=== PATIENT | male | born 1950 | race Caucasian/White ===

== ENCOUNTER 2025-01-02 13:33 | Outpatient (CLI) | payer OTHER, SELFPAY ==
--- NOTE | ~2025-01-02 | PE_ITS ---
EXAMINATION: PET_PETPSMAST_PT DATE: 01/02/2025 15:34 INDICATION: Prostate cancer TECHNIQUE: 5.081 mCi of Illucix Ga-[id number]) was administered i.v. Low dose computed mellissa graphy (CT) images were acquired from the base of the brain to the base of the brain to the proximal thighs for attenuation correction and anatomic localization. Positron emission tomography (PET) image s were acquired in the same distribution beginning 83 minutes after injection. Images including fused PET/CT images were reconstructed in axial, coronal, and sagittal planes. Automated exposure control technique was employed. The dose-length product was 955.18mGy-cm. COMPARISON: None FINDINGS: Head/neck: Typical pattern of symmetric physiologic increased activity in the lacrimal, parotid and submandibula r glands as well as along the mucosa of the nasal and oral cavities, pharynx and hypopharynx. No path ologically enlarged cervical lymphadenopathy or suspicious foci of increased uptake in the visualized head or neck. Chest: There are extensive peripheral and lower lung predominant groundglass opacities and irregular septal line thickening which could be due to pneumonia or pulmonary edema in the acute setting or nonspecifi c interstitial pneumonia (NSIP) pattern chronic interstitial lung disease. No pleural effusion. Cardi omegaly. Atherosclerotic coronary artery calcifications and change of prior median sternotomy and cor onary artery bypass grafting. No pericardial effusion. Thoracic aorta is normal in caliber. No pathol ogically enlarged or PSMA avid thoracic lymphadenopathy. Small sliding-type hiatal hernia. Abdomen/pelvis/proximal thighs: Physiologic renal accumulation and excretion of activity in the kidneys, bladder and along portions o f ureters. Prostatomegaly measuring 4.5 x 3.9 cm. There are relatively symmetric foci of increased ac tivity at the left and right posterior aspects of the prostate with maximal SUV of 11.7 on the left a nd 7.3 on the right consistent with primary prostate cancer. Normal degree and slightly heterogenous pattern of increased uptake throughout the liver and spleen without radiologic correlate or dominant PSMA avid lesion. Cholecystectomy clips the gallbladder fossa. The pancreas and bilateral adrenal gla nds are normal. Moderate uptake scattered throughout the bowels with typical duodenal and proximal je junal predominance and without radiologic correlate, also likely physiologic. No other abnormal foci of increased uptake or pathologically enlarged lymphadenopathy in the abdomen, pelvis or proximal thi ghs. Musculoskeletal: Mild cervical, thoracic and lumbar spondylosis. 5 mm anterolisthesis L4 on L5. No suspicious lytic, b lastic or abnormally PSMA avid bone lesions to suggest metastatic disease. IMPRESSION: 1. 2 small regions of moderate increased PSMA uptake posterior aspect of the enlarged prostate on bot h the left and right consistent with primary prostate cancer. No evident metastatic disease. Reviewed, dictated and finalized at location A. IMPRESSION: 1. 2 small regions of moderate increased PSMA uptake posterior aspect of the en larged prostate on both the left and right consistent with primary prostate can cer. No evident metastatic disease.
--- OUTSIDE RECORDS SUMMARY | 2025-01-02 15:12 | XMS_ITS | Clinical Summary ---
Author Organization [facility] Address [address] [place] [address] Care Team Providers Care Fishing Game Warden Name Role Phone Geovanny Walter MD Primary Care Provider Allergies No known active allergies Medications fluticasone propionate (FLONASE) 50 mcg/actuation nasal sprayIndications:A llergic Rhinitis Administer 1 spray into affected nostril(s) every morning 6 Active latanoprost (XALATAN) 0.005 % ophthalmic solutionIndication s:open angle glaucoma Administer 1 drop into both eyes nightly 3 Active nitroglycerin (NITROSTAT) 0.4 mg SL tabletIndications: acute episode of anginal pain,acute myocardial infarction Place 1 tablet (0.4 mg total) under the tongue every 5 (five) minutes as needed for chest pain Active atorvastatin (LIPITOR) 40 mg tabletIndications: hyperlipidemia Take 1 tablet (40 mg total) by mouth nightly Crush pills until 09/07 when able to take pills whole 4 Active ondansetron ODT (ZOFRAN-ODT) 4 mg disintegrating tabletIndications: Prevention of Post-Operative Nausea and Vomiting Take 1 tablet (4 mg total) by mouth every 8 (eight) hours as needed for nausea or vomiting 20 tablet 2 4 Active lisinopriL (PRINIVIL,ZESTRIL) 2.5 mg tabletIndications: hypertension Take 1 tablet (2.5 mg total) by mouth daily Crush pills until 09/07 when able to take pills whole 4 Active metoprolol XL (TOPROL-XL) 25 mg extended release tabletIndications: coronary artery disease Take 1 tablet (25 mg total) by mouth nightly RESTART on 09/07 when able to take pills whole 4 Active omeprazole (PriLOSEC) 40 mg capsuleIndications :Stress Ulcer Prophylaxis Take 1 capsule (40 mg total) by mouth daily Open capsule and take in applesauce until 09/07 when able to take pills whole 4 Active acetaminophen (TYLENOL) solution 160 mg/5 mL Take 31 mL (1,000 mg total) by mouth every 6 (six) hours as needed for pain Use first for management of pain 120 mL 4 Active aspirin 81 mg enteric coated tabletIndications: Myocardial Reinfarction Prevention Take 1 tablet (81 mg total) by mouth every morning RESTART on 09/07 when able to take pills whole 4 Active glipiZIDE (GLUCOTROL) 2.5 mg tablet Take 1 tablet (2.5 mg total) by mouth 2 (two) times a day before breakfast and lunch Crush pills until 09/07 when able to take pills whole 4 Active omeprazole (PriLOSEC) 40 mg capsule Take 1 capsule (40 mg total) by mouth daily 30 capsule 3 5 026 Active Active Problems Problem Noted Date Diagnosed Date Hiatal hernia with gastroesophageal reflux 08/30 Hiatal hernia with GERD 05/03/2024 Peripheral artery disease 12/14/2023 Type 2 diabetes mellitus wit h diabetic chronic kidney disease, unspecified CKD stage, unspecified whether long filler cigar roller machine insulin use 12/14/2023 Stage 3 chronic kidney disea se, unspecified whether stage 3a or 3b CKD 12/14/2023 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 Castano at the [facility]./EGD Prep Instructions were sent through [facility] today, per patient.) 12/29/2024 Orders Only [address] [place] [phone] Nancy Castano MD Grissom's esophagus with high grade dysplasia (Primary Dx) 11/23/2024 12:30 PM NANOTECHNICIAN - 11/23/2024 1:00 PM NANOTECHNICIAN Surgery [address] [place] [address] Nancy Castano MD ESOPHAGOSCOPY WITH ABLATION 11/23/2024 12:21 PM NANOTECHNICIAN Anesthesia Event [address] [place] [address] Harjinder Mcqueen MD 11/23/2024 11:23 AM NANOTECHNICIAN - 11/23/2024 2:00 PM NANOTECHNICIAN Hospital Encounter [address] [address] Nancy Castano MD Discharge Disposition: Discharge to home or self care 11/16/2024 Telephone [facility] Specialty Services [address] [place] [phone] Jamia Kumar RN GI Preprocedure 11/08/2024 Telephone [facility] - [facility] Minimally Invasive Surgery [address] [place] [address] [facility] 12th Floor, [place] [address] Natty White MD Scheduling Appointments 11/07/2024 Telephone [facility] ([facility]) [facility] Minimally Invasive Surgery [address] [place] [address] [facility] 12th Floor, [place] [address] Leigh Gallardo NP Scheduling Appointments 11/07/2024 Telephone [facility] ([facility]) - [facility] Minimally Invasive Surgery [address] [place] [address] 12th Floor, [place] [address] Natty White MD Scheduling Appointments 11/03/2024 Telephone [facility] ([facility]) - [facility] Minimally Invasive Surgery [address] [facility] 12th Floor, [place] [phone] Leigh Gallardo NP Scheduling Appointments 11/03/2024 Telephone [facility]) [facility] Minimally Invasive Surgery [address] [facility] 12th [address], [place] [phone] Naty Rea MA from Last 3 Months Surgical History Surgery Date Site/Laterality Comments CORONARY ARTERY BYPASS GRAFT 10/18/2019 - 10/17/2020 CHOLECYSTECTOMY UPPER GASTROINTESTINAL ENDOSCOPY COLONOSCOPY Medical History Medical History Date Comments GERD (gastroesophageal reflux disease) Grissom esophagus Hypertension Coronary artery disease Type 2 diabetes mellitus (HCC) History of transfusion Cataract Arthritis H/O three vessel coronary artery bypass Sleep apnea Family History Medical History Relation Name Comments Prostate cancer Father Anesthesia problems Neg Hx Relation Name Status Comments Father Social History Tobacco Use Types Packs/Day Years Used Date Smoking Tobacco: Never Passive Smoke Exposure: Never Smokeless Tobacco: Never Tobacco Cessation:Counseling Given: Not Answered AUDIT-C Answer Date Recorded Q1: How often do you have a drink containing alc ohol? Monthly or less 11/23/2024 Q2: How many drinks containi ng alcohol do you have on a typical day when you are drinking? 1 or 2 11/23/2024 Q3: How often do you have si x or more drinks on one occasion? Never 11/23/2024 Personal Safety Answer Date Recorded Have you ever been in or are you currently in a harmful physical or emotional relationship or is someone making you feel afraid or unsafe? Denies 11/23/2024 Sex and Gender Information Value Date Recorded Sex Assigned at Not on file Legal Sex Male 2:40 AM NANOTECHNICIAN Gender Identity Not on file Sexual Orientation Not on file Obstetrics History Last Filed Vital Signs Vital Sign Reading Time Taken Comments Blood Pressure 95/58 11/23/2024 1:35 PM NANOTECHNICIAN Pulse 69 11/23/2024 1:35 PM NANOTECHNICIAN Temperature 37 C (98.6 F) 11/23/2024 1:05 PM NANOTECHNICIAN Respiratory Rate 16 11/23/2024 1:35 PM NANOTECHNICIAN Oxygen Saturation 98% 11/23/2024 1:35 PM NANOTECHNICIAN Inhaled Oxygen Concentration - - Weight 77.1 kg (170 lb) 11/23/2024 11:42 AM NANOTECHNICIAN Height 177.8 cm (5' 10 ) 11/23/2024 11:42 AM NANOTECHNICIAN Body Mass Index 24.39 11/23/2024 11:42 AM NANOTECHNICIAN Plan of Treatment Upcoming Encounters Date Type Department Care Team (Latest Contact Info) Description 02/20/2025 11:30 AM CDT Hospital Encounter [facility] Digestive Disease [place] [address] [facility] [address] [place] [address] Nancy Castano MD [address] [place] [address] 02/20/2025 11:30 AM CDT - 02/20/2025 12:00 PM CDT Surgery [facility] Digestive Disease [address] [address] Nancy Castano MD [address] [place] [address] ESOPHAGOGASTRODUODENOSCOPY Scheduled Procedures Name Priority Associated Diagnoses Date/Ti me ESOPHAGOGASTRODUODENOSCOPY Grissom's esophagus with high grade dysplasia 02/20/2025 11:30 AM CDT Health Maintenance Due Date Last Done Comments Albumin Creatinine Ratio, Urine 1950 Colon Cancer Screening-Colonoscopy 1950 Depression Screening 1950 Hepatitis C Screening 1950 Dilated Eye Exam 1950 Foot Exam 1950 DTaP/Tdap/Td Vaccine (1 - Tdap) 1963 Hepatitis B Screening 1970 Prostate Cancer Screening-PSA 05/24/2015 05/24/2013 Well Visit 65+ 2017 Pneumococcal vaccine 65+ (2 of 2 - PCV) 08/22/2020 08/22/2019 Covid-19 Vaccine (5 - 2023-2 5 season) 2024 02/06/2022, 08/12/2021, 12/10/2020, Additional history exists Influenza Vaccine (#1) 2024 9, 07/21/2018, 07/30/2017, Additional history exists Hemoglobin A1C 02/14/2025 08/17/2024, 0804/2013, 11/08/2012 Lipid Panel 08/30/2025 08/30/2024, 05/18, 09/26/2022, Additional history exists eGFR 08/31/2025 08/31/2024, 08/18, 08/17/2024 Fall Risk Assessment 11/23/2025 11/23/2024 Zoster Vaccine Completed 11/18/2018, 08/18/2018 Procedures Procedure Name Priority Date/Time Associated Diagnosis Comments ESOPHAGOSCOPY WITH ABLATION 11/23/2024 12:21 PM NANOTECHNICIAN Grissom's esophagus with high grade dysplasia Special Needs EGD WITH CRYOTHERAPY EGD 11/23/2024 11:58 AM NANOTECHNICIAN POCT GLUCOSE DEVICE Routine 11/23/2024 11:54 AM NANOTECHNICIAN EGFR Routine 08/31/2024 9:23 PM NANOTECHNICIAN LIPID PANEL Routine 08/30/2024 9:53 PM NANOTECHNICIAN POCT HEMOGLOBIN A1C Routine 08/17/2024 2 :18 PM CDT PSA DIAGNOSTIC Routine 05/24/2013 10:18 AM CDT from Last 3 Months or Most Recently Relevant to Health Maintenance Results * EGD (11/23/2024 11:58 AM NANOTECHNICIAN) Anatomical Region Laterality Modality Other Narrative Procedure Note Early, Nancy Winslow MD - 11/23/2024 11:58 AM CST GI ENDOSCOPY [facility] Patient Name: Sy Salguero Procedure Date: 11/23/2024 11:58 AM Date of : 1950 Admit Type: Outpatient Age: 73 Gender: Male Attending MD: Nancy Castano M.D. Room: [facility] ENDOSCOPY ROOM 9 Note Status: Finalized Procedure: Upper GI endoscopy Indications: For endoscopic therapy of Grissom's esophagus with high grade dysplasia s/p previous RFA andcryotherapy. Original segment [id number]. Last EGD 04/2024 with cryotherapy. Referring MD: Geovanny Walter M.D. Providers: Nancy Castano M.D., Luly Hudson M.D. Medicines: Monitored Anesthesia Care Complications: No immediate complications. Estimated Blood Loss: Estimated blood loss was minimal. Procedure: Pre-Anesthesia Assessment: - The risks and benefits of the procedure and the sedation options and risks were discussed with the patient. All questions were answered and informed consent was obtained. The benefits, risks, and alternatives to theprocedure and sedation were discussed and informed consentwas obtained. The scope was passed under direct vision. The GIF [id number] endoscope was introduced through the mouth, and advanced to the antrum ofthe stomach. The upper GI endoscopy was accomplished without difficulty. The patient tolerated the procedure well. Findings: Esophagogastric landmarks were identified: the upper extent of the gastric folds was found at 37 cm from the incisors. A 4 cm hiatal hernia was present. The esophagus and gastroesophageal junction were examined with white light and narrow band imaging (NBI) from a forward view andretroflexed position. There were esophageal mucosal changes suggestive ofBarrett's esophagus. These changes involved the mucosa at the upper extent ofthe gastric folds (37 cm from the incisors) extending to the Z-line (36cm from the incisors). A salmon colored island was present at 35 cm. The maximum longitudinal extent of these esophageal mucosal changes was 1cm in length. The decision was made to ablate the abnormal mucosa in the esophagus with spray cryotherapy. Endoscopic visualization identified the ablation site. Ventilation tubing had been attached to the endoscope. The ablation catheter was inserted via the workingchannel. A clear cap was fitted to the distal tip of the endoscope. A total oftwo sites were ablated. Liquid nitrogen cryogen was applied for 20seconds after the first appearance of a frosting effect. The ablated area was allowed to thaw for 60 seconds. Ablation was repeated in a likewise fashion at each site for a total of two cycles each to 2 sites. No complications was observed at the conclusion of therapy. Theventilation tubing was removed. The anatomical areas where the abnormal mucosahad been ablated were examined. Areas of abnormal mucosa appearedcompletely ablated. Impression: - Esophageal mucosal changes suggestive ofBarrett's esophagus. Ablated with spray cryotherapy usingcarbon dioxide. - 4 cm hiatal hernia. Recommendation: - Observe patient in GI recovery unit forobservation. - Full liquid diet (clear soups, cream soups, milkshakes, ice cream, jello) for 1 day. - Mechanical soft diet (scrambled eggs, mashed potatoes, yogurt, ice cream, noodles, etc.) fornext day. Advance diet to regular if no difficulty swallowing after day 2. Go back to the full liquid diet if you have any difficulty swallowing and callus at [phone]. - Tylenol tablets, gel caps, or elixir(acetaminophen generic) 1000mg up to every 6 hours as needed for severe chest pain. - Be sure to take your proton pump inhibitor (Prilosec, Prevacid, Nexium, Protonix, etc) twice a day 30 minutes before meals. - Carafate liquid 1 gram 1-2 hours after meals andat night to coat the esophagus and assist in healingfor the next 2 weeks. - Repeat the upper endoscopy in 3 months for retreatment or if all Grissom's mucosa iseliminated for surveillance Attending Participation: I was present and participated during the entire procedure, including non-mora portions. Electronically signed by Nancy Castano MD Nancy Castano M.D. 11/23/2024 1:08:12 PM . Number of Addenda: 0 Note Initiated On: 11/23/2024 11:58 AM us Nancy Castano MD ENDOSCOPY PROCEDURES Final Res ult * POCT glucose (11/23/2024 11:54 AM NANOTECHNICIAN) Glucose, POC 119 70 - 199 mg/dL Blood 11/23/2024 11:5 4 AM NANOTECHNICIAN 11/23/2024 11:54 AM NANOTECHNICIAN Nancy Castano MD LAB POCT ORDERABLES - DEVICE F inal Result [facility] Department [place] [address] * (ABNORMAL) eGFR (08/31/2024 9:23 PM NANOTECHNICIAN) eGFR 46(L) >=60 mL/min/1. 73 m2 Comment: Interpretive Data Reference Interval Normal >/= 90 mL/min/1.73m2 Mildly decreased* 60 - 89 mL/min/1.73m2 Mildly to moderately decreased 45 - 59 mL/min/1.73m2 Moderately to severely decreased 30 - 44 mL/min/1.73m2 Severely decreased 15 - 29 mL/min/1.73m2 Kidney Failure < 15 mL/min/1.73m2 *Relative to young adult level Estimated glomerular filtration rate is determined by the 2020 CKD-EPI equation recommended by the National Kidney Foundation (A Unifying Approach to GFR Estimation: Recommendations of the NKF-ASK Task Force on Reassessing the Inclusion of Race in Diagnosing Kidney Disease, JASN 2020). The CKD-EPI equation should not be used for patients with unstable renal function and has not been validated in children and those over 70. Current interpretive data was last reviewed 2021. Blood 08/31/2024 9:23 PM NANOTECHNICIAN 08/31/2024 9:55 PM NANOTECHNICIAN us Jessenia Hewitt NP LAB BLOOD ORDERABLES Fin al Result [facility] Department [place] [address] * Lipid panel (08/30/2024 9:53 PM NANOTECHNICIAN) Cholesterol 87 30 - 199 mg/dL Comment: Interpretive Data Ages < or = 19 years Acceptable: <170 mg/dL Borderline high: 170-199 mg/dL High: >or= 200 mg/dL Ages > or = 20 years Desirable: <200 mg/dL Borderline high: 200-239 mg/dL High: >or= 240 mg/dL Literature References: 1. Expert Panel on Integrated Guidelines for Cardiovascular Health and Risk Reduction in Children and Adolescents. Pediatrics 2011;128:S213 2. NCEP Expert Panel. Circulation 2004;110:227 Current Interpretive Data was last revised on 2018. Triglycerides 39 <=149 mg/dL [facility] Comment: Interpretive Data Ages < or = 9 years Acceptable: <75 mg/dL Borderline high: 75-99 mg/dL High: >or= 100 mg/dL Ages 10 to 20 years Acceptable: <90 mg/dL Borderline high: 90-129 mg/dL High: >or= 130 mg/dL Ages > or = 20 years Desirable: <150 mg/dL Borderline high: 150-199 mg/dL High: 200-499 mg/dL Very high: >or= 499 mg/dL Literature References: 1. Expert Panel on Integrated Guidelines for Cardiovascular Health and Risk Reduction in Children and Adolescents. Pediatrics 2011;128:S213 2. NCEP Expert Panel. Circulation 2004;110:227 Current Interpretive Data was last revised on 2018. HDL 44 >=40 mg/dL [facility] Comment: Interpretive Data Ages < or = 19 years Acceptable: >45 mg/dL Borderline low: 40-45 mg/dL Low: <40 mg/dL Ages > or = 20 years Desirable: >or= 60 mg/dL Low: <40 mg/dL Literature References: 1. Expert Panel on Integrated Guidelines for Cardiovascular Health and Risk Reduction in Children and Adolescents. Pediatrics 2011;128:S213 2. NCEP Expert Panel. Circulation 2004;110:227 Current Interpretive Data was last revised on 2018. LDL, calculated 32 <=129 mg/dL [facility] Comment: Interpretive Data Ages < or = 19 years Acceptable: <110 mg/dL Borderline high: 110-129 mg/dL High: >or= 130 mg/dL Ages > or = 20 years Optimal: <100 mg/dL Near optimal: 100-129 mg/dL Borderline high: 130-159 mg/dL High: >160 mg/dL Calculated using the Nicko LDL-C estimating equation. This equation was implemented on 2024. Prior to this date LDL-C was estimated using the Friedewald equation. Literature References: 1. Expert Panel on Integrated Guidelines for Cardiovascular Health and Risk Reduction in Children and Adolescents. Pediatrics 2011;128:S213 2. NCEP Expert Panel. Circulation 2004;110:227 3. Nicko Stevenson et al. MICHELLE Cardiol. 2020 February 15;5(5):540-548. doi: 10.1001/jamacardio.2020.0013 Current Interpretive Data was last revised on 2024. Non-HDL Cholesterol 43 mg/dL [facility] Comment: Interpretive Data Ages < or = 19 years Acceptable: <120 mg/dL Borderline high: 120-144 mg/dL High: >145 mg/dL Ages > or = 20 years When triglycerides are >200 mg/dL, Non-HDL cholesterol is a secondary target of therapy with treatment goals that are 30 mg/dL greater than the LDL cholesterol target. Literature References: 1. Expert Panel on Integrated Guidelines for Cardiovascular Health and Risk Reduction in Children and Adolescents. Pediatrics 2011;128:S213 2. NCEP Expert Panel. Circulation 2004;110:227 Current Interpretive Data was last revised on 2018. Chol/HDL ratio 2 [facility] Blood 08/30/2024 9:53 PM NANOTECHNICIAN 08/30/2024 11:38 PM NANOTECHNICIAN Natty White MD LAB BLOOD ORDERABLES Final R esult Performing Organization Address [facility] Co de Phone Number [facility] [place] [address] * (ABNORMAL) POCT hemoglobin A1c (08/17/2024 2:18 PM CDT) Pathologist [facility] Hgb A1C, POC 7.6(H) 4.0 - 5.6 % Est Average Gluc POC 171 mg/dL [facility] Comment: The ADA recommends reporting an estimated Average Glucose (eAG) with all Hemoglobin A1c results using the equation derived from a study of 507 normal and diabetic adults. Minority populations were underrepresented and children were not included. (Diabetes Care 31:9189-3482, 2008). The eAG is not equivalent to a fasting glucose. Blood 08/17/2024 2:18 PM CDT 08/17/2024 2:18 PM CDT Natty White MD POINT OF CARE TEST ORDERABLE S Final Result Performing Organization Address [facility] de Phone Number [facility] [place] [address] * PSA diagnostic (05/24/2013 10:18 AM CDT) [facility] PSA,TOTAL DIAGNOSTIC 3.8 0.0 - 5.4 ng/mL 05/24/2013 1:08 PM CDT [facility] HISTORICAL RESULTS Comment: Method: ECLIA Values obtained by different assay methods cannot be used interchangeably. Use sequential testing to confirm baseline if assay method changed during patient monitoring. 05/24/2013 10:1 8 AM CDT 05/24/2013 12:27 PM CDT Narrative [facility] HISTORICAL RESULTS - 05/24/2013 1:08 PM CDT FASTING 12 HRS [place] Musa MD LAB BLOOD ORDERABLES Final Resu lt Performing Organization Address [facility] Co de Phone Number [facility] HISTORICAL RESULTS from Last 3 Months or Most Recently Relevant to Health Maintenance Insurance [facility] Advance Directives For more information, please contact: [phone] * Full Code (Latest Code Status on File) Date Activated Date Inactivated Comments 11/23/2024 11:34 AM 11/23/2024 8:15 PM * Full Code Date Activated Date Inactivated Comments 08/30/2024 6:59 PM 09/01/2024 3:24 PM * Full Code Date Activated Date Inactivated Comments 05/01/2024 1:48 PM 05/01/2024 8:16 PM * Full Code Date Activated Date Inactivated Comments 12/23/2023 12:08 PM 12/23/2023 7:55 PM * Full Code Date Activated Date Inactivated Comments 09/20/2023 10:13 AM 09/20/2023 4:09 PM Care Teams Fishing Game Warden Relationship Specialty Start Date End Date Geovanny Walter MD PCP - General Family Medicine 02/09/23
--- OUTSIDE RECORDS SUMMARY | 2025-01-02 15:12 | XMS_ITS | Encounter Summary ---
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 Gender Identity Not on file Sexual Orientation Not on file documented as of this encounter Plan of Treatment Upcoming Encounters Date Type Department Care Team (Latest Contact Info) Description 02/20/2025 11:30 AM CDT Hospital Encounter [facility] Digestive Disease [place] [id number] [address] Nancy Castano MD [address] [facility] [place] [address] 02/20/2025 11:30 AM CDT - 02/20/2025 12:00 PM CDT Surgery [facility] Digestive Disease [place] [id number] [address] [address] Nancy Castano MD [address] [place] [address] ESOPHAGOGASTRODUODENOSCOPY Scheduled Procedures Name Priority Associated Diagnoses Date/Ti me ESOPHAGOGASTRODUODENOSCOPY Grissom's esophagus with high grade dysplasia 02/20/2025 11:30 AM CDT documented as of this encounter Procedures Procedure Name Priority Date/Time Associated Diagnosis Comments SCAN - LABS 02/15/2017 12:00 AM CDT documented in this encounter Results * SCAN - LABS (02/15/2017 12:00 AM CDT) Narrative 02/15/2017 12:00 AM CDT Ordered by an unspecified provider. us Historical Provider MD Final Res ult documented in this encounter Visit Diagnoses Not on filedocumented in this encounter Care Teams Link Trainer Teacher Relationship Specialty Start Date End Date Geovanny Walter MD PCP - General Family Medicine 02/09/23 documented as of this encounter
--- OUTSIDE RECORDS SUMMARY | 2025-01-02 15:12 | XMS_ITS | Encounter Summary ---
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 Digestive Disease [place] [phone] [address] Nancy Castano MD [address] [place] [address] 02/20/2025 11:30 AM CDT - 02/20/2025 12:00 PM CDT Surgery [facility] Digestive Disease [place] [phone] [address] Nancy Castano MD [address] [place] [address] ESOPHAGOGASTRODUODENOSCOPY Scheduled Procedures Name Priority Associated Diagnoses Date/Ti me ESOPHAGOGASTRODUODENOSCOPY Grissom's esophagus with high grade dysplasia 02/20/2025 11:30 AM CDT documented as of this encounter Procedures Procedure Name Priority Date/Time Associated Diagnosis Comments SCAN - LABS 02/09/2017 12:00 AM CDT documented in this encounter Results * SCAN - LABS (02/09/2017 12:00 AM CDT) Narrative 02/09/2017 12:00 AM CDT Ordered by an unspecified provider. us Historical Provider MD Final Res ult documented in this encounter Visit Diagnoses Not on filedocumented in this encounter Care Teams Utility Porter Relationship Specialty Start Date End Date Geovanny Walter MD PCP - General Family Medicine 02/09/23 documented as of this encounter
--- OUTSIDE RECORDS SUMMARY | 2025-01-02 15:13 | XMS_ITS | Encounter Summary ---
Author Organization [facility] Address [address] [place] [address] Care Team Providers Care Laboratory Equipment Cleaner Name Role Phone Geovanny Walter MD Primary Care Provider Encounter Details Date Type Department Care Team ([facility] Contact Info) Description 06/06/2020 Abstract [facility] at [address] [id number] Casi Sotelo MA Social History Tobacco Use Types Packs/Day Years Used Date Smoking Tobacco: Former Smokeless Tobacco: Never Comments:smoked pipe in genaro e[place] Alcohol Use Standard Drinks/Week Comments Yes 0 (1 standard drink = 0.6 oz pur e alcohol) socially AUDIT-C Answer Date Recorded Q1: How often do you have a drink containing alc ohol? 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 [address] [address] documented as of this encounter Procedures Procedure Name Priority Date/Time Associated Diagnosis Comments HEMOGLOBIN, GLYCOSYLATED Routine 06/03/2023 COMPREHENSIVE METABOLIC PANEL Routine 06/03/2023 LIPID PANEL Routine 06/03/2023 PROSTATE SPECIFIC ANTIGEN,TOTAL Routine 01/27/2022 COMPREHENSIVE METABOLIC PANEL Routine 01/27/2022 LIPID PANEL Routine 01/27/2022 HEMOGLOBIN, GLYCOSYLATED Routine 01/27/2022 CBC (OUTSIDE LAB) Routine 08/05/2021 PROSTATE SPECIFIC ANTIGEN,TOTAL Routine 08/05/2021 COMPREHENSIVE METABOLIC PANEL Routine 08/05/2021 LIPID PANEL Routine 08/05/2021 HEMOGLOBIN, GLYCOSYLATED Routine 08/05/2021 CBC (OUTSIDE LAB) Routine 06/04/2020 COMPREHENSIVE METABOLIC PANEL Routine 06/04/2020 LIPID PANEL Routine 06/04/2020 HEMOGLOBIN, GLYCOSYLATED Routine 06/04/2020 URIC ACID BLOOD Routine 06/04/2020 documented in this encounter Results * (ABNORMAL) COMPREHENSIVE METABOLIC PANEL (06/03/2023) SODIUM S/P/B 140 GLUCOSE 119 mg/dL AST 24 BUN 22 CREATININE S/P/B 1.66(A) 0.7 - 1.3 CALCIUM S/P/B 9.2 POTASSIUM S/P/B 4.0 CHLORIDE S/P/B 102 ALT 13 GFR ESTIMATE 44 us Default History Genericprovider LABORATORY Edited Result - Final * LIPID PANEL (06/03/2023) Pathologist [facility] CHOLESTEROL 100 TRIGLYCERIDES 73 HDL 46 LDL (CALCULATED) 39 us Default History Genericprovider LABORATORY Edited Result - Final * HEMOGLOBIN, GLYCOSYLATED (06/03/2023) Pathologist [facility] HGB A1C 6.8 % Default History Genericprovider LABORATORY Edited Result - Final * PROSTATE SPECIFIC ANTIGEN,TOTAL (01/27/2022) Pathologist [facility] PSA 8.2 01/27/2022 Doc [facility] Abstract LABORATORY Edited Resul t - Final * HEMOGLOBIN, GLYCOSYLATED (01/27/2022) Pathologist [facility] HGB A1C 6.9 % 01/27/2022 us Doc [facility] Abstract LABORATORY Final Result * LIPID PANEL (01/27/2022) Pathologist [facility] CHOLESTEROL 111 HDL 55 TRIGLYCERIDES 64 LDL (CALCULATED) 42 01/27/2022 us Doc [facility] Abstract LABORATORY Final Result * (ABNORMAL) COMPREHENSIVE METABOLIC PANEL (01/27/2022) Pathologist [facility] SODIUM S/P/B 138 POTASSIUM S/P/B 4.5 CO2 21 CHLORIDE S/P/B 104 GLUCOSE 129 mg/dL CALCIUM S/P/B 9.0 BUN 34 CREATININE S/P/B 1.62(A) 0.7 - 1.3 EGFR NON-AFR. AMER. 46 <=90 ALKALINE PHOSPHATASE S/P/B 76 ALT 15 AST 20 BILIRUBIN TOTAL S/P/B 0.6 ALBUMIN S/P/B 4.0 3.5 - 5.0 TOTAL PROTEIN S/P/B 7.1 GLOBULIN 3.1 01/27/2022 us Doc [facility] Abstract LABORATORY Final Result * PROSTATE SPECIFIC ANTIGEN,TOTAL (08/05/2021) Pathologist [facility] PSA 7.4 08/05/2021 us Doc [facility] Abstract LABORATORY Final Result * HEMOGLOBIN, GLYCOSYLATED (08/05/2021) Pathologist [facility] HGB A1C 6.9 % 08/05/2021 us Doc [facility] Abstract LABORATORY Final Result * LIPID PANEL (08/05/2021) [facility] CHOLESTEROL 108 HDL 56 TRIGLYCERIDES 67 LDL (CALCULATED) 38 08/05/2021 us Doc [facility] Abstract LABORATORY Final Result * (ABNORMAL) COMPREHENSIVE METABOLIC PANEL (08/05/2021) Pathologist [facility] SODIUM S/P/B 140 POTASSIUM S/P/B 5.1 CO2 22 CHLORIDE S/P/B 103 GLUCOSE 116 mg/dL CALCIUM S/P/B 9.4 BUN 30 CREATININE S/P/B 1.54(A) 0.7 - 1.3 EGFR AFR. AMER. 53 <=90 EGFR NON-AFR. AMER. 46 <=90 ALKALINE PHOSPHATASE S/P/B 88 ALT 21 AST 28 BILIRUBIN TOTAL S/P/B 0.7 ALBUMIN S/P/B 4.1 3.5 - 5.0 TOTAL PROTEIN S/P/B 7.2 GLOBULIN 3.1 08/05/2021 us Doc [facility] Abstract LABORATORY Final Result * CBC (OUTSIDE LAB) (08/05/2021) WBC 8.5 HGB 14.0 HCT 43.3 PLT 163 08/05/2021 us Doc [facility] Abstract LAB-OUTSIDE/ABSTRACTED Final Result * URIC ACID BLOOD (06/04/2020) Pathologist [facility] URIC ACID 5.2 06/04/2020 us Doc [facility] Abstract LABORATORY Final Result * HEMOGLOBIN, GLYCOSYLATED (06/04/2020) Pathologist [facility] HGB A1C 7.0 % 06/04/2020 us Doc [facility] Abstract LABORATORY Final Result * LIPID PANEL (06/04/2020) Pathologist [facility] CHOLESTEROL 102 HDL 48 TRIGLYCERIDES 72 LDL (CALCULATED) 40 06/04/2020 us Doc [facility] Abstract LABORATORY Final Result * (ABNORMAL) COMPREHENSIVE METABOLIC PANEL (06/04/2020) Pathologist [facility] SODIUM S/P/B 140 POTASSIUM S/P/B 4.9 CO2 24 CHLORIDE S/P/B 103 GLUCOSE 138 mg/dL CALCIUM S/P/B 9.1 BUN 31 CREATININE S/P/B 1.43(A) 0.7 - 1.3 EGFR AFR. AMER. 58 <=90 EGFR NON-AFR. AMER. 50 <=90 ALKALINE PHOSPHATASE S/P/B 96 ALT 31 AST 36 BILIRUBIN TOTAL S/P/B 0.6 ALBUMIN S/P/B 3.9 3.5 - 5.0 TOTAL PROTEIN S/P/B 7.2 GLOBULIN 3.3 06/04/2020 us Doc [facility] Abstract LABORATORY Edited Resul t - Final * CBC (OUTSIDE LAB) (06/04/2020) Pathologist [facility] WBC 8.1 HGB 13.4 HCT 41.3 PLT 163 06/04/2020 us Doc [facility] Abstract LAB-OUTSIDE/ABSTRACTED Edite d Result - Final documented in this encounter Visit Diagnoses Not on filedocumented in this encounter Care Teams Laboratory Equipment Cleaner Relationship Specialty Start Date End Date Geovanny Walter MD [address] [place] [address] DR REDDY [address] [place] [address] PCP - General 10/22/16 documented as of this encounter
--- OUTSIDE RECORDS SUMMARY | 2025-01-02 15:13 | XMS_ITS | Patient Health Record ---
Author Organization [facility] Address [address] [address] Care Team Providers Care Streets And Buildings Decorator Name Role Phone None, PCP Primary Care Provider Dr. Jytoi Browne Unavailable [phone] Reason For Referral No Information Medications Medication SIG (Take, Route, Frequency, Duration) Notes Start Date End Date Status Aspirin 81 MG 1 tablet Orally Once a day Active Metoprolol Tartrate 25 MG 1 tablet with food Orally Twice a day Active Lisinopril 5 MG 1 tablet Orally Once a day for 30 day(s) Not-Taking Atorvastatin Calcium 40 MG 1 tablet Orally Once a day Active Furosemide 20 MG as directed Orally Not-Taking Iron 325 (65 Fe) MG 1 tablet Orally Once a day for 30 day(s) Active glipiZIDE XL 2.5 MG 1 tablet with breakf ast Orally Once a day for 30 day(s) Active Amiodarone HCl 200 MG 1 tablet Orally tw ice a day Not-Taking Problems Problem Type SNOMED Code ICD Code Onset Dates Problem Status W/U Status Risk Notes Problem 335387098 Mixed hyperlipidemia (E78.2) Active confirmed Problem 356733619 Ischemic cardiomyopathy (I25.5) Active confirmed Problem 87727424 Essential hypertension (I10) Active confirmed Problem 141463372 Coronary artery disease involving [place] coronary artery of sen[place] heart without angina pectoris (I25.10) Active confirmed Problem 03728671 Type 2 diabetes mellitus with other specified complication, without long-term current use of insulin (E11.69) Active confirmed Plan Of Treatment No Information Insurance Providers Payer Name Payer Address Payer Phone Subscriber Number Group Number Insured Name Patient Relationship to Insured Coverage Start Date Coverage End Date [facility] [address] [place] [address] [id number] WILIAN GATES Self - patient is the insured [facility] Options Part B [address] [place] [phone] [id number] WILIAN GATES Self - patient is the insured Medical (General) History Medical History History ICD Code CAD s/p CABG 12/2019 Ischemic CM EF 45-50% HTN HLD DM
--- OUTSIDE RECORDS SUMMARY | 2025-01-02 15:13 | XMS_ITS | Continuity of Care Document ---
Author Organization [facility]. If a dditional information is needed, contact Health Information Management at [phone] Address [address] [place] [address] Phone Care Team Providers Care Furnace Clerk Name Role Phone Unavailable Unavailable Unavailable Medications Aspirin;81 MG Orally Once a day, 1 tablet Quantity:30 STEPHANY ERICKSON Comments:81 MG Orally Once a day, 1 tablet Acetaminophen;500 MG Orally every 6 hrs, 2 tablets STEPHANY ERICKSON Comments:500 MG Orally every 6 hrs, 2 tablets Polysaccharide iron complex 150 MG Oral Capsule [Nu-Iron 150];150 MG Orally Once a day, 1 capsule Quantity:30 STEPHANY ERICKSON Comments:150 MG Orally Once a day, 1 capsule Lisinopril 5 MG Oral Tablet; 5 MG Orally Once a day, 1 tablet Quantity:30 AURELIA-ALEJANDRA ERICKSON Status:Inactive Comments:5 MG Orally Once a day, 1 tablet Metoprolol Tartrate 50 MG Or al Tablet;50 MG Orally Twice a day, 1/2 tablet with food STEPHANY ERICKSON Comments:50 MG Orally Twice a day, 1/2 tablet with food Atorvastatin Calcium;40 MG O rally Once a day, 1 tablet Quantity:30 STEPHANY ERICKSON Comments:40 MG Orally Once a day, 1 tablet Lasix;20 MG Orally Once a da y, 1 tablet Quantity:30 STEPHANY ERICKSON Status:Inactive Comments:20 MG Orally Once a day, 1 tablet Percocet;5-325 MG Orally annika ry 4 hrs for moderate pain, 1 tablet as needed STEPHANY ERICKSON Status:Inactive Comments:5-325 MG Orally every 4 hrs for moderate pain, 1 tablet as needed glipiZIDE XL 2.5 MG 24 HR Ex tended Release Oral Tablet;2.5 MG Orally Once a day, 1 tablet with breakfast Quantity:30 AURELIAJERRELL ERICKSON Comments:2.5 MG Orally Once a day, 1 tablet with breakfast Potassium Chloride 10 MEQ Ex tended Release Oral Tablet;10 MEQ Orally Twice a day, 1 tablet with food Quantity:60 AURELIABritneyALEJANDRA ERICKSON Status:Inactive Comments:10 MEQ Orally Twice a day, 1 tablet with food Fluticasone Propionate;50 MC G/ACT Nasally Twice a day, 1 spray in each nostril STEPHANY ERICKSON Comments:50 MCG/ACT Nasally Twice a day, 1 spray in each nostril Latanoprost;0.005 % Ophthalm ic Once a day, 1 drop into both eyes STEPHANY ERICKSON Status:Inactive Comments:0.005 % Ophthalmic Once a day, 1 drop into both eyes
--- OUTSIDE RECORDS SUMMARY | 2025-01-02 15:13 | XMS_ITS | Patient Health Record ---
Author Organization [facility] Billing Info Address [address] [place] [address] Care Team Providers Care Manager Solar Name Role Phone FRANDY ERICKSON Unavailable [phone] SANJUANITA MARIE MD Unavailable Unavailable Reason For Referral No Information Medications Medication SIG (Take, Route, Frequency, Duration) Notes Start Date End Date Status GlipiZIDE XL 2.5 MG 1 tablet with breakfast Orally Once a day for 30 day(s) Active Nu-Iron 150 MG 1 capsule Orally Onc e a day for 30 day(s) Active Fluticasone Propionate 50 MCG/ACT 1 spray in each nostril Nasally Twice a day Active Metoprolol Tartrate 50 MG 1/2 tablet wit h food Orally Twice a day Active Aspirin 81 MG 1 tablet Orally Once a day for 30 day(s) Active Lasix 20 MG 1 tablet Orally Once a day for 30 day(s) Not-Taking Acetaminophen 500 MG 2 tablets Orally ev anne-marie 6 hrs Active Latanoprost 0.005 % 1 drop into both eye s Ophthalmic Once a day Not-Taking Atorvastatin Calcium 40 MG 1 tablet Oral ly Once a day for 30 day(s) Active Lisinopril 5 MG 1 tablet Orally Once a day for 30 day(s) Not-Taking Potassium Chloride ER 10 MEQ 1 tablet with food Orally Twice a day for 30 day(s) Not-Taking Percocet 5-325 MG 1 tablet as needed Orally every 4 hrs for moderate pain Not-Taking Social History Tobacco Use: Social History Observation Description Date Details (start date - stop date) Never Smoker NA - NA Tobacco Status: Question Answer Notes Patient is a never smoker non tobacco user Problems Problem Type SNOMED Code ICD Code Onset Dates Problem Status W/U Status Risk Notes Problem 02595830 Essential hypertension (I10) Active confirmed Problem 161957611 S/P CABG (quintanilla ry artery bypass graft) (Z95.1) Active confirmed Problem 85666633 Hyperlipidemia, unspecified hyperlipidemia type (E78.5) Active confirmed Problem 20690265 ST elevation myocardial infarction (STEMI), unspecified artery (I21.3) Active confirmed Plan Of Treatment Future Test Test Name Order Date BASIC METABOLIC PANEL (61216) 01/18/2020 Insurance Providers Payer Name Payer Address Payer Phone Subscriber Number Group Number Insured Name Patient Relationship to Insured Coverage Start Date Coverage End Date [facility] [address] [place] [id number] Sy Salguero Self - patient is the insured 0 0 Medical (General) History Medical History History ICD Code Diabetes type 2 Hypertension Hyperlipidemia Surgical History Surgery Date(Month/Year) [facility] - Emergency coronary art anne-marie bypass (ANDERSON to distal LAD, RSVG to distal RCA and OM1), left internal mammary artery harvest, endoscopic vein harvest of bilateral greater saphenous vein, intraoperative interpretation of transesophageal echocardiogram 12/31/2019 Tonsillectomy Cholecystectomy Hospitalization History Reason Date(Month/Year) Lithotripsy 2016
--- OUTSIDE RECORDS SUMMARY | 2025-01-02 15:13 | XMS_ITS | Encounter Summary ---
Author Organization [facility] Facility Care Team Providers Care Toll Test Desk Worker Name Role Phone Geovanny Walter MD Primary Care Provider [phone] Encounter Details Date Type Department Care Team (Latest Contact Info) Description 03/08/2017 Orders Only [facility] CLINCONV ProviderYessica MD [address] [place] [address] Social History Tobacco Use Types Packs/Day Years Used Date Smoking Tobacco: Never Assessed Sex and Gender Information Value Date Recorded Sex Assigned at Not on file Legal Sex Male 2:40 AM HOSPITAL INTER[employer] Gender Identity Not on file Sexual Orientation Not on file documented as of this encounter Plan of Treatment Upcoming Encounters Date Type Department Care Team (Latest Contact Info) Description 02/20/2025 11:30 AM CDT Hospital Encounter [facility] Digestive Disease [place] [phone] [address] [address] Nancy Castano MD [address] [place] [address] 02/20/2025 11:30 AM CDT - 02/20/2025 12:00 PM CDT Surgery [facility] Digestive Disease [place] [phone] [address] [address] Nancy Castano MD [address] [place] [address] ESOPHAGOGASTRODUODENOSCOPY Scheduled Procedures Name Priority Associated Diagnoses Date/Ti me ESOPHAGOGASTRODUODENOSCOPY Grissom's esophagus with high grade dysplasia 02/20/2025 11:30 AM CDT documented as of this encounter Procedures Procedure Name Priority Date/Time Associated Diagnosis Comments SCAN - LABS 03/18/2017 12:00 AM CDT documented in this encounter Results * SCAN - LABS (03/18/2017 12:00 AM CDT) Narrative 03/18/2017 12:00 AM CDT Ordered by an unspecified provider. us Historical Provider MD Final Res ult documented in this encounter Visit Diagnoses Not on filedocumented in this encounter Care Teams Toll Test Desk Worker Relationship Specialty Start Date End Date Geovanny Walter MD PCP - General Family Medicine 02/09/23 documented as of this encounter
--- OUTSIDE RECORDS SUMMARY | 2025-01-02 15:13 | XMS_ITS | Referral Summary ---
Author Organization [facility] Address [address] [place] [address] Care Team Providers Care Bridge Ironworker Helper Name Role Phone Geovanny Walter MD Primary Care Provider [phone] Encounters Date Type Department Care Team Description 12/29/[address] [facility] Gastroenterology [address] [place] [address] Advanced Medicine 12th [place] [address] [place] [phone] Lakeshia Good RMA EGD (GI Pre Procedure Assessment: The EGD is scheduled on 02-20-25 @ 11:[address] Castano at the [facility]./EGD Prep Instructions were sent through [facility] today, per patient.) 12/29/2024 Orders Only [facility] Digestive Disease [address] [address] Nancy Castano MD Grissom's esophagus with high grade dysplasia (Primary Dx) 11/23/2024 12:30 PM CLERICAL ASSISTANT - 11/23/2024 1:00 PM CLERICAL ASSISTANT Surgery [facility] Digestive Disease [address] [place] [address] Nancy Castano MD ESOPHAGOSCOPY WITH ABLATION 11/23/2024 12:21 PM CLERICAL ASSISTANT Anesthesia Event [facility] Digestive Disease [address] [address] Harjinder Mcqueen MD 11/23/2024 11:23 AM CLERICAL ASSISTANT - 11/23/2024 2:00 PM CLERICAL ASSISTANT Hospital Encounter [facility] Dig[facility] Disease [facility] [address] [facility] [address] [place] [address] Nancy Castano MD Discharge Disposition: Discharge to home or self care 11/16/2024 Telephone [facility] Specialty Services [address] [place] [address] Jamia Kumar RN GI Preprocedure 11/08/2024 Telephone [facility] Minimally Invasive Surgery [address] [place] [address] Floor, [place] [phone] Natty White MD Scheduling Appointments 11/07/2024 [facility] Minimally Invasive Surgery [address] [place] [address] Floor, [place] [phone] Leigh Gallardo NP Scheduling Appointments 11/07/2024 [facility] Minimally Invasive Surgery [address] [place] [address] Floor, [place] [phone] Natty White MD Scheduling Appointments 11/03/2024 [facility]) [facility] Minimally Invasive Surgery [address] [place] [address] Floor, [place] [phone] Leigh Gallardo NP Scheduling Appointments 11/03/2024 [facility]) [facility] Minimally Invasive Surgery [address] [place] [address] Floor, [place] [phone] Naty Rea MA from Last 3 Months Allergies No known active allergies Medications fluticasone [...] by mouth daily 30 capsule 3 5 03/14/2 026 Active Active Problems Problem Noted Date Diagnosed Date Hiatal hernia with gastroesophageal reflux 08/30 Hiatal hernia with GERD 05/03/2024 Peripheral artery disease 12/14/2023 Type 2 diabetes mellitus wit h diabetic chronic kidney disease, unspecified CKD stage, unspecified whether fci insulin use 12/14/2023 Stage 3 chronic kidney disea se, unspecified whether stage 3a or 3b CKD 12/14/2023 Grissom's esophagus without dysplasia 11/15/2023 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 Social History Tobacco Use Types Packs/Day Years [...] on file Legal Sex Male 2:40 AM CLERICAL ASSISTANT Gender Identity Not on file Sexual Orientation Not on file Last Filed Vital Signs Vital Sign Reading Time Taken Comments Blood Pressure 95/58 11/23/2024 1:35 PM CLERICAL ASSISTANT Pulse 69 11/23/2024 1:35 PM CLERICAL ASSISTANT Temperature 37 C (98.6 F) 11/23/2024 1:05 PM CLERICAL ASSISTANT Respiratory Rate 16 11/23/2024 1:35 PM CLERICAL ASSISTANT Oxygen Saturation 98% 11/23/2024 1:35 PM CLERICAL ASSISTANT Inhaled Oxygen Concentration - - Weight 77.1 kg (170 lb) 11/23/2024 11:42 AM CLERICAL ASSISTANT Height 177.8 cm (5' 10 ) 11/23/2024 11:42 AM CLERICAL ASSISTANT Body Mass Index 24.39 11/23/2024 11:42 AM CLERICAL ASSISTANT Plan of Treatment Upcoming Encounters Date Type Department Care Team (Latest Contact Info) Description 02/20/2025 11:30 AM CDT Hospital Encounter [facility] Dig[facility]ive Disease Center [address] [facility] [address] [place] [address] Nancy Castano MD [address] [place] [address] 02/20/2025 11:30 AM CDT - 02/20/2025 12:00 PM CDT Surgery [facility] Digestive Disease [place] [address] [facility] [address] [place] [address] Nancy Castano MD [address] [place] [address] ESOPHAGOGASTRODUODENOSCOPY Scheduled Procedures Name Priority Associated Diagnoses Date/Ti me ESOPHAGOGASTRODUODENOSCOPY Grissom's esophagus with high grade dysplasia 02/20/2025 11:30 AM CDT Procedures Procedure Name Priority Date/Time Associated Diagnosis Comments ESOPHAGOSCOPY WITH ABLATION 11/23/2024 12:21 PM CLERICAL ASSISTANT Grissom's esophagus with high grade dysplasia Special Needs EGD WITH CRYOTHERAPY EGD 11/23/2024 11:58 AM CLERICAL ASSISTANT POCT GLUCOSE DEVICE Routine 11/23/2024 11:54 AM CLERICAL ASSISTANT EGFR Routine 08/31/2024 9:23 PM CLERICAL ASSISTANT LIPID PANEL Routine 08/30/2024 9:53 PM CLERICAL ASSISTANT POCT HEMOGLOBIN A1C Routine 08/17/2024 2 :18 PM CDT PSA DIAGNOSTIC Routine 05/24/2013 10:18 AM CDT from Last 3 Months or Most Recently Relevant to Health Maintenance Results * EGD (11/23/2024 11:58 AM CLERICAL ASSISTANT) Anatomical Region Laterality Modality Other Narrative Procedure Note Nancy Castano MD - 11/23/2024 11:58 AM CST [facility] ENDOS[facility] Patient Name: Sy Salguero Procedure Date: 11/23/2024 11:58 AM Date of : 1950 Admit Type: Outpatient Age: 73 Gender: Male Attending MD: Nancy Castano M.D. Room: [facility] ENDOSCOPY ROOM 9 Note Status: Finalized [...] passed under direct vision. The [id number] [id number] endoscope was introduced through the mouth, and [...] have any difficulty swallowing and callus at [phone]. - Tylenol tablets, gel caps, or elixir(acetaminophen [...] 0 Note Initiated On: 11/23/2024 11:58 AM Nancy Castano MD ENDOSCOPY PROCEDURES Final Res ult * POCT glucose (11/23/2024 11:54 AM CLERICAL ASSISTANT) Glucose, POC 119 70 - 199 mg/dL Blood 11/23/2024 11:5 4 AM CLERICAL ASSISTANT 11/23/2024 11:54 AM CLERICAL ASSISTANT Nancy Castano MD LAB POCT ORDERABLES - DEVICE F inal Result [facility] [place] [address] * (ABNORMAL) eGFR (08/31/2024 9:23 PM CLERICAL ASSISTANT) eGFR 46(L) >=60 mL/min/1. 73 m2 Comment: [...] last reviewed 2021. Blood 08/31/2024 9:23 PM CLERICAL ASSISTANT 08/31/2024 9:55 PM CLERICAL ASSISTANT us Jessenia Hewitt NP LAB BLOOD ORDERABLES Fin al Result [facility] [place] [address] * Lipid panel (08/30/2024 9:53 PM CLERICAL ASSISTANT) Cholesterol 87 30 - 199 mg/dL Comment: [...] on 2018. Triglycerides 39 <=149 mg/dL SUJATHA GARCIA Comment: Interpretive Data Ages [...] 2018. LDL, calculated 32 <=129 mg/dL SUJATHA GARCIA Comment: Interpretive Data Ages [...] NCEP Expert Panel. Circulation 2004;110:227 3. Nicko Jiang al. MICHELLE Cardiol. 2019February 15;5(5):540-548. doi: 10.1001/jamacardio.2020.0013 Current Interpretive Data was last revised on 2024. Non-HDL Cholesterol 43 mg/dL SUJATHA GARCIA Comment: Interpretive Data Ages [...] last revised on 2018. Chol/HDL ratio 2 [facility] Blood 08/30/2024 9:53 PM CLERICAL ASSISTANT 08/30/2024 11:38 PM CLERICAL ASSISTANT us Natty White MD LAB BLOOD ORDERABLES Final R esult Performing Organization Address [facility] [place] Phone Number [facility] [place] [address] * (ABNORMAL) POCT hemoglobin A1c (08/17/2024 2:18 PM CDT) Pathologist [facility] Hgb A1C, POC 7.6(H) 4.0 - 5.6 % Est Average Gluc POC 171 mg/dL [facility] Comment: The ADA recommends reporting an estimated Average Glucose (eAG) with all Hemoglobin A1c results using the equation derived from a study of 507 normal and diabetic adults. Minority populations were underrepresented and children were not included. (Diabetes Care 31:6380-7203, 2008). The eAG is not equivalent to a fasting glucose. Blood 08/17/2024 2:18 PM CDT 08/17/2024 2:18 PM CDT us Natty White MD POINT OF CARE TEST ORDERABLE S Final Result Performing Organization Address [facility] de Phone Number [facility] [place] [address] * PSA diagnostic (05/24/2013 10:18 AM CDT) Pathologist [facility] PSA,TOTAL DIAGNOSTIC 3.8 0.0 - 5.4 ng/mL Comment: Method: ECLIA Values obtained by different assay methods cannot be used interchangeably. Use sequential testing to confirm baseline if assay method changed during patient monitoring. 05/24/2013 10:1 8 AM CDT 05/24/2013 12:27 PM CDT Narrative RADHA ALBRECHT HISTORICAL RESULTS - 05/24/2013 1:08 PM CDT FASTING 12 HRS us [place] Musa MD LAB BLOOD ORDERABLES Final Resu lt RADHA ALBRECHT HISTORICAL RESULTS from Last 3 Months or Most Recently Relevant to Health Maintenance Insurance [employer] Advance Directives For more information, please contact: [phone] * Full Code (Latest Code Status on [...] 10:13 AM 09/20/2023 4:09 PM Care Teams Bridge Ironworker Helper Relationship Specialty Start Date End Date Geovanny Walter MD PCP - General Family Medicine 02/09/23
--- OUTSIDE RECORDS SUMMARY | 2025-01-02 15:13 | XMS_ITS | Clinical Summary ---
Author Organization [facility] Address [address] [place] [address] Care Team Providers Care Ophthalmologist Name Role Phone Geovanny Walter MD Primary Care Provider Allergies No known active allergies Medications fluticasone propionate 50 MCG/ACT nasal spray by Nasal route daily. 6 Active latanoprost 0.005 % ophthalmic solution Place 1 drop into both eyes daily. 6 Active aspirin EC 81 MG tablet Take 1 tablet (81 mg total) by mouth daily. Active nitroglycerin (NITROSTAT) 0.[address] 1 tablet (0.4 mg total) under the tongue every 5 (five) minutes as needed for Chest Pain. Maximum of 3 doses, if a third dose is needed call 911. 25 tablet 3 3 Active glipiZIDE 2.5 MG Tab Take 2.5 mg by mouth 2 (two) times daily. 4 Active omeprazole (PRILOSEC) 40 MG capsule Take 1 capsule (40 mg total) by mouth daily. 4 Active atorvastatin (LIPITOR) 40 MG tablet Take 1 tablet (40 mg total) by mouth nightly at bedtime. 90 tablet 2 4 Active metoprolol succinate ER (TOPROL-XL) 25 MG 24 hr tablet TAKE ONE TABLET BY MOUTH AT BEDTIME 90 tablet 1 4 Active lisinopril (PRINIVIL) 2.5 MG tablet TAKE 1 TABLET BY MOUTH EVERY DAY 90 tablet 5 Active lisinopril (PRINIVIL) 2.5 MG tablet TAKE 1 TABLET BY MOUTH EVERY DAY 90 tablet 4 12/04/19 25 Discontinued Active Problems Problem Noted Date Diagnosed Date Coronary artery disease invo lving [place] coronary artery of [place] heart without angina pectoris 02/23/2023 Ischemic cardiomyopathy 02/23/2023 Mixed hyperlipidemia 03/21/2020 Type 2 diabetes mellitus wit hout complication, without long-term current use of insulin ([facility]) 03/21/2020 Essential hypertension Myocardial infarction ([facility]) Peripheral artery disease Encounters Date Type Department Care Team Description 12/01/2024 Telephone [facility], [address] [phone] Pratima Mcqueen MD Surgical Clearance (Dr Johnson requesting cardiac clearance) from Last 3 Months Immunizations Name Administration Dates Next Due Fluzone High Dose - >Age 65 (Prefilled Syringe) 06/15/2020,08/11/2019 MODERNA COVID-19 (12+) MRNA, LNP-S, PF, 100 MCG/ 0.5 ML DOSE 12/10/2020,11/12/2020 Shingrix 11/18/2018,08/18/2018 Family History Medical History Relation Comments Hieu Meredith Disease - Deangelo sebas of lower cerebellum Daughter from 's side of family Alcohol Abuse Father Cancer Father Prostate Cancer Father Arthritis Mother COPD Mother Open Heart Mother 5V CABG Stent Cardiac Mother Hieu Meredith Disease - Deangelo sebas of lower cerebellum Son from 's side of family Relation Status Comments Daughter Alive Father (Age 75) Maternal Grandfather (Age 73) Maternal Grandmother (Age 80) Mother (Age 77) Paternal Grandfather (Age 54) Paternal Grandmother (Age 87) Son Alive Social History Tobacco Use Types Packs/Day Years Used Date Smoking Tobacco: Never Smokeless Tobacco: Never Tobacco Cessation:Counseling Given: Not Answered Comments:smoked pipe in college Alcohol Use Standard Drinks/Week Comments Yes 3.3 (1 standard drink = 0.6 oz p ure alcohol) Monthly not daily or weekly AUDIT-C Answer Date Recorded Q1: How often do you have a drink containing alc ohol? 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 DESIGNER Temperature 36.3 C (97.4 F) 01/28/2023 10:57 AM CDT Respiratory Rate 18 11/05/2023 3:30 PM PROSTHETIC MAKEUP DESIGNER Oxygen Saturation 100% 09/06/2024 1:24 PM PROSTHETIC MAKEUP DESIGNER Inhaled Oxygen Concentration - - Weight 80.3 kg (177 lb) 09/06/2024 1:24 PM 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 [address] [place], [place] [id number] Health Maintenance Due Date Last Done Comments Kidney Health Evaluation 1950 Pneumococcal Vaccine: 65+ Years (1 of 2 - PCV) 1958 Diabetes: Retinopathy Eye Exam 1970 Hepatitis C 1970 DTaP, Tdap and Td Vaccines (1 - Tdap) 1971 RSV Immunization or 60+ Years (1 - Risk 60-74 years 1-dose series) 2012 Annual Medicare Wellness Visit 2017 ASCVD LDL 06/03/2024 06/03/2023, 12, 01/27/2022, Additional history exists Lipid Panel 06/03/2024 06/03/2023, 09/17, 01/27/2022, Additional history exists COVID-19 Vaccine ( season) 2024 12/10/2020, 11/12/2020 Influenza Adult (#1) 2024 06/15/2020, 08/11/20 19 PHQ-2 (Physician [facility]) 10/18/2024 Hemoglobin A1C 02/14/2025 08/17/2024, 05/18, 09/26/2022, Additional history exists Colorectal Cancer Screening Colonoscopy (10 Years) 11/06/2031 11/06/2021, 11/06/2021 Zoster Vaccines Completed 11/18/2018, 08/18/2018 EGD-Grissom's Surveillance Discontinued 01/28/2023 Meningococcal B Vaccine Aged Out No l onger eligible based on patient's age to complete this topic Meningococcal Vaccine Aged Out No leslie thi eligible based on patient's age to complete this topic RSV Immunizations Under 20 Months Aged Out No longer eligible based on patient's age to complete this topic Procedures Procedure Name Priority Date/Time Associated Diagnosis Comments LIPID PANEL Routine 06/03/2023 HEMOGLOBIN, GLYCOSYLATED Routine 06/03/2023 EGD Routine 01/28/2023 8:40 AM CDT COLONOSCOPY Routine 11/06/2021 6:02 AM PROSTHETIC MAKEUP DESIGNER from Last 3 Months or Most Recently Relevant to Health Maintenance Results * HEMOGLOBIN, GLYCOSYLATED (06/03/2023) HGB A1C 6.8 % us Default History Genericprovider LABORATORY Edited Result - Final * LIPID PANEL (06/03/2023) CHOLESTEROL 100 TRIGLYCERIDES 73 HDL 46 LDL (CALCULATED) 39 us Default History Genericprovider LABORATORY Edited Result - Final from Last 3 Months or Most Recently Relevant to Health Maintenance Insurance [employer] Member Subscriber Plan / Payer (Ef fective 2019-Present) Name:Sy Salguero Relation to Subscriber:Self Name:Sy Salguero Payer ID:Not on file Type:Not on file Address: [place] [phone] [employer] Care Teams Ophthalmologist Relationship Specialty Start Date End Date Geovanny Walter MD [address] [place] [address] DR REDDY [address] [place] [place] [address] PCP - General 10/22/16
== END 2025-01-02 13:34 | disposition home or self-care (01) ==
PROVIDERS: PCP Family Medicine; Visit Provider Urology
DX: C61 Malignant neoplasm of prostate (principal)
CPT/HCPCS: 78815; A9596